=== PATIENT | male | born 1990 | race American Indian/Alaskan Native ===

== ENCOUNTER 2022-08-10 23:24 | Emergency (ER) | payer OTHER ==
[~2022-08-10] VITALS: Ht 175.3 cm; Wt 93.9 kg
[2022-08-11 00:25] VITALS: BP 131/75; TEMP 97.5
== END 2022-08-11 00:30 | disposition home or self-care (01) ==
LOC: ED 23:24
PROC: 2W3RX1Z Immobilization of Left Lower Leg using Splint (ICD-10-PCS; principal; 2022-08-10)
DX: S93.492A Sprain of other ligament of left ankle, initial encounter (principal); X50.1XXA Overexertion from prolonged static or awkward postures, initial encounter; Y92.89 Other specified places as the place of occurrence of the external cause
CPT/HCPCS: 80307; 99283